=== PATIENT | female | born 1955 | race Caucasian/White ===

== ENCOUNTER → 2023-06-16 15:06 | Outpatient (REF) | payer OTHER, SELFPAY | LOC: HWWDC 15:06 | PROVIDERS: ATTENDING PHYSICIAN Obstetrics & Gynecology Gynecology; FAMILY PHYSICIAN Internal Medicine | DX: Z12.31 Encounter for screening mammogram for malignant neoplasm of breast (principal) | CPT/HCPCS: 77063; 77067 ==

== ENCOUNTER → 2024-08-01 14:34 | Outpatient (REF) | payer OTHER, SELFPAY | LOC: HWWDC 14:34 | PROVIDERS: ATTENDING PHYSICIAN Obstetrics & Gynecology Gynecology; FAMILY PHYSICIAN Internal Medicine | DX: Z12.39 Encounter for other screening for malignant neoplasm of breast (principal) | CPT/HCPCS: 77063; 77067 ==

== ENCOUNTER → 2025-02-18 15:16 | Outpatient (REF) | payer OTHER, SELFPAY | LOC: HWRAD 15:16 | PROVIDERS: ATTENDING PHYSICIAN Psychiatry & Neurology Neurology; FAMILY PHYSICIAN Internal Medicine | DX: M41.80 Other forms of scoliosis, site unspecified (principal); M25.551 Pain in right hip | CPT/HCPCS: 71046; 72050; 73502 ==

== ENCOUNTER → 2025-03-20 15:16 | Outpatient (REF) | payer OTHER, SELFPAY | LOC: RAD 15:16 | PROVIDERS: ATTENDING PHYSICIAN Psychiatry & Neurology Neurology; FAMILY PHYSICIAN Internal Medicine | DX: M41.80 Other forms of scoliosis, site unspecified (principal); M25.551 Pain in right hip | CPT/HCPCS: 72082 ==